=== PATIENT | male | born 1975 | race Caucasian/White ===

== ENCOUNTER 2024-06-06 09:26 | Inpatient (IN) ==
--- NOTE | 2024-06-01 12:20 | Anesthesiology Consultation ---
Date of Service June 01, 2024 Assessment & Plan (1) Encounter for pre-operative examination: Chart Review Chart Review: Acceptable Risk for Surgery and Patient NOT seen in Pre Admission Testing Cardiology note 05/25/24: "Patient denies any anginal complaints at this time. Last echo 04/03/24 reveals EF 60%, no RWMA, no significant valvular disease. Over the past 30 days he has not had any active cardiovascular conditions such as acute coronary syndrome, decompensated heart failure, severe symptomatic valvular heart disease or symptomatic cardiac arrhythmias. From a functional capacity standpoint, he is able to perform activities above 4 METS. Based on history, do not recommend further invasive or noninvasive cardiovascular testing or procedures prior to proceeding with planned surgery. Patient is well optimized from a cardiac standpoint to proceed with their scheduled procedure." Consults Requested none History Surgery Operation Date: 06/06/24 07:30 Proposed Procedures p Transcarotid Artery Revascularization - Domingo Pickett MD Height/Weight Height: 5 ft 5.5 in Weight: 68.039 kg Allergies Allergy/AdvReac Type Severity Reaction Status Date / Time Pumpkin Seeds Allergy Mild Uncoded 05/31/24 09:34 Medications Home Medications Medication Instructions Recorded Confirmed Last Taken aspirin 81 mg tablet,delayed 81 mg PO DAILY 03/30/24 05/31/24 Unknown release atorvastatin 80 mg tablet 80 mg PO QPM 03/30/24 05/31/24 Unknown baclofen 10 mg tablet 10 mg PO BID PRN muscle spasms 03/30/24 05/31/24 Unknown buspirone 10 mg tablet 10 mg PO BID 03/30/24 05/31/24 Unknown carvedilol 3.125 mg tablet 3.125 mg PO BID 03/30/24 05/31/24 Unknown desmopressin 0.1 mg tablet 0.1 mg PO QPM 03/30/24 05/31/24 Unknown lacosamide 100 mg tablet 100 mg PO BID 03/30/24 05/31/24 Unknown losartan 50 mg tablet 50 mg PO QAM 03/30/24 05/31/24 Unknown sertraline 100 mg tablet 100 mg PO QAM 03/30/24 05/31/24 Unknown trazodone 100 mg tablet 200 mg PO HS PRN Sleep 03/30/24 05/31/24 Unknown ticagrelor 90 mg tablet 90 mg PO BID 05/31/24 05/31/24 Unknown Past Medical History Medical History (Updated 06/01/24 @ 12:14 by Aniket Garrett MD) Encounter for pre-operative examination ADHD no meds 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 Hx of renal calculi passed on own 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" follows with nephrology at [facility] Hx of deep venous thrombosis (11/2023) left arm, caused from an IV History of GI bleed (11/2023) admit to [facility], had colonoscopy with polyps Carotid artery stenosis Anxiety Hyperlipidemia History of anesthesia reaction "extremely violent" when awakening History of seizure (2019) "Massive Seizure" life-flighted to [place] from [facility], no seizure since this time Hypertension seen in [facility] ED on 05/28/24 with "extreme high bp" - reports getting iv medication and monitoring then sent home Past Surgical History Surgical History Hx of colonoscopy with polypectomy History of wisdom tooth extraction Hx of foot surgery plantar warts removed Hx of cardiac catheterization (2019) [facility], no [place], went on to have CABG x 1 at [facility] Hx of CABG (2019) x 1, [facility], follows with [facility] (05/25/24) History of carpal tunnel surgery of right wrist Hx of inguinal hernia surgery as an infant, bilateral Social History Smoking Status: Former smoker Do You Dip or Chew Tobacco: No Smoking End Date: Oct 13, 2023 ( > 1ppd) Hx Alcohol Use: Yes Alcohol type: wine alcohol intake frequency: a few times a week Alcohol Intake Frequency Comment: Previous heavy drinker Hx Substance Use: Yes substance use type: marijuana Last Used Substance Other:: medical marijuana daily Testing Laboratory Results 05/07/24: WBC 7.57, hgb 14.4, hct 40.9, plt 232 Na 137, K 3.5, Cl 107, bicarb 25, BUN 9, creat 0.83 Electrocardiogram Date: 05/07/24 HR 56. Sinus swati. No sig change. Echocardiogram Date: 04/03/24 Other Testing LV size and function normal.
--- NOTE | 2024-06-06 07:46 | History & Physical Report ---
Date of Service June 06, 2024 Assessment & Plan (1) Stenosis of left internal carotid artery: Plan: Patient is asymptomatic from his left ICA disease, however, this is rather severe at around 90% stenosis. The degree of stenosis does put the patient noted an increased risk(22%) of suffering a cerebrovascular accident. Due to the severity of the stenosis, we recommend that patient consider undergoing surgical intervention via carotid endarterectomy versus transcarotid artery revascularization. Both procedures, including the risks benefits and alternatives were discussed at length with the patient. Patient elects to proceed with left TCAR. The specific risks of CVA, myocardial infarction, local nerve damage, bleeding, infection were discussed at length with the patient. Patient expresses understanding and agreement to proceed. His was also present today as well. This to be scheduled in the next 2 weeks the patient's convenience. Additionally patient will be started on Plavix as of today, and will need to start taking aspirin again for maintenance of his upcoming carotid stent. We will have him evaluated by his conservation educator regarding his cardiac risk stratification. They are advised to call with any other questions or concerns. Patient is agreeable with this plan. History of Present Illness Chief Complaint: Left carotid stenosis Primary Care Provider: NO PCP is a middle-age male who presents for left ICA stenosis noted on recent imaging. Patient states that he was having dizziness and flashes in his vision, as well as nausea and vomiting, and went to his local emergency department. His blood pressure was extremely elevated at the time. During that visit, he had a CTA of his neck and head, which demonstrated 80 to 90% of his left ICA. Patient denies any history of stroke in the past. He also denies any recent concerning symptoms, including amaurosis, unilateral extremity weakness numbness or tingling, difficulty speaking or swallowing, facial droop, sudden onset confusion. 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 He denies any complaints at this time including headache, fever, chest pain, shortness of breath, vomiting, nausea, vomiting, rest pain, claudication, nonhealing wounds or ulcers, other complaints. He states he was seen by a local vascular surgeon in his area, but was dissatisfied with his visit there and requested a second opinion here. Allergies Allergy/AdvReac Type Severity Reaction Status Date / Time pumpkin Allergy Unknown Verified 06/04/24 11:22 Home Medications Medication Instructions Recorded Confirmed Type aspirin 81 mg tablet,delayed 81 mg PO DAILY 03/30/24 05/31/24 History release atorvastatin 80 mg tablet 80 mg PO QPM 03/30/24 05/31/24 History baclofen 10 mg tablet 10 mg PO BID PRN muscle spasms 03/30/24 05/31/24 History buspirone 10 mg tablet 10 mg PO BID 03/30/24 05/31/24 History carvedilol 3.125 mg tablet 3.125 mg PO BID 03/30/24 05/31/24 History desmopressin 0.1 mg tablet 0.1 mg PO QPM 03/30/24 05/31/24 History lacosamide 100 mg tablet 100 mg PO BID 03/30/24 05/31/24 History losartan 50 mg tablet 50 mg PO QAM 03/30/24 05/31/24 History sertraline 100 mg tablet 100 mg PO QAM 03/30/24 05/31/24 History trazodone 100 mg tablet 200 mg PO HS PRN Sleep 03/30/24 05/31/24 History ticagrelor 90 mg tablet 90 mg PO BID 05/31/24 05/31/24 History Past Med/Surg History Problem List (Updated 06/06/24 @ 07:46 by Domingo Pickett MD) Stenosis of left internal carotid artery Medical History Encounter for pre-operative examination ADHD no meds 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 Hx of renal calculi passed on own 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" follows with nephrology at [facility] Hx of deep venous thrombosis (11/2023) left arm, caused from an IV History of GI bleed (11/2023) admit to [facility], had colonoscopy with polyps Carotid artery stenosis Anxiety Hyperlipidemia History of anesthesia reaction "extremely violent" when awakening History of seizure (2019) "Massive Seizure" life-flighted to [place] from [facility], no seizure since this time Hypertension seen in [facility] ED on 05/28/24 with "extreme high bp" - reports getting iv medication and monitoring then sent home Surgical History Hx of colonoscopy with polypectomy History of wisdom tooth extraction Hx of foot surgery plantar warts removed Hx of cardiac catheterization (2019) [place], [place], went on to have CABG x 1 at [facility] Hx of CABG (2019) x 1, [facility] [place], follows with [facility] (05/25/24) History of carpal tunnel surgery of right wrist Hx of inguinal hernia surgery as an , bilateral Social History Smoking Status: Former smoker Tobacco Type: Cigarettes Smoking End Date: Oct 13, 2023 ( > 1ppd); Second Hand Exposure: No; Do You Dip or Chew Tobacco: No; Tobacco Cessation Education Requested by Patient: No Hx Alcohol Use: Yes Alcohol type: wine Hx Substance Use: Yes Last Used Substance Other:: medical marijuana daily Preferred Language: Syriac Communication Ability: Effective Three Dimensional Map Modeler Required: No Beliefs That Will Affect Care: None Current Living Situation: Spouse Other Information That Helps Us Care for You: No Feels Safe at Home: Yes Safety Concerns: Feels Safe At This Time Assistive Devices: Glasses Review of Systems All systems reviewed & are unremarkable except as noted in HPI & below Physical Exam Physical Exam: Constitutional: In general patient is a healthy-appearing well-nourished well- developed middle-aged male no distress. He is alert and oriented with any focal deficits. His carotids do not demonstrate a bruit. Heart is regular, his lungs are decreased but clear. His abdomen is soft and nontender with normoactive bowel sounds all 4 quadrants. Radial pulses +1 in the right, +2 on the left. Ulnar pulses +2 bilaterally. Femoral pulses are +2. Lower extremity distal pulses are +2. He has brisk capillary refill and no sign of distal ischemia.
[2024-06-06] MEDS: LR 15ML/HR IV SCH (10:31)
[2024-06-06 10:39] LABS: INR 1.1 (0.9-1.1); Partial Thromboplastin Time 26 Seconds (21-31); Prothrombin Time 11.9 Seconds (9.0-12.0)
[2024-06-06 11:00] LABS: BUN Creatinine Ratio 18.1 (10-20); Calcium 8.6 mg/dl (8.6-10.3); Creatinine Clr Calc Pharmacy 113.2 ml/min; Est GFR (African American) 127.8 ml/min; Est GFR (Non-African American) 110.3 ml/min; Potassium 3.8 mmol/L (3.5-5.1)
[2024-06-06] MEDS ORDERED: HYDROmorphone INJ 1 MG/ML SYRINGE IV PRN (11:11)
[2024-06-06] MEDS ORDERED: ATROPINE SULFATE 0.1 MG/ML 10ML SYR IV PRN (11:11)
[2024-06-06] MEDS ORDERED: ONDANSETRON INJ 2 MG/ML 2 ML VIAL IV PRN (11:11)
[2024-06-06] MEDS ORDERED: ePHEDrine sulfate 50 MG/ML AMP IV PRN (11:11)
[2024-06-06] MEDS ORDERED: fentaNYL citrate PF 100 MCG/2 ML VIAL IV PRN (11:11)
[2024-06-06] MEDS ORDERED: LABETALOL HCL IV 5 MG/ML 20ML IV PRN (11:11)
[2024-06-06 11:26] LABS: Troponin I High Sensitivity 3.5 pg/ml (0-20)
[2024-06-06] MEDS ORDERED: fentaNYL citrate PF 100 MCG/2 ML VIAL ONE (11:28)
[2024-06-06] MEDS ORDERED: LIDOCAINE 2% 2 ML VIAL/AMP(20MG/ML) INFIL ONE (11:28)
[2024-06-06] MEDS ORDERED: DEXAMETHASONE SOD INJ 4 MG/ML VIAL ONE (11:28)
[2024-06-06] MEDS ORDERED: PROPOFOL IV EMULSION 10 MG/ML 20 ML VIAL IV ONE ×2 (11:28→13:22)
[2024-06-06] MEDS ORDERED: MIDAZOLAM HCL 1 MG/ML 2ML VIAL ONE (11:28)
[2024-06-06] MEDS ORDERED: ONDANSETRON INJ 2 MG/ML 2 ML VIAL ONE (11:28)
[2024-06-06] MEDS ORDERED: ROCURONIUM BROMIDE 10 MG/ML 5 ML VIAL IV ONE ×10 (11:31→13:24)
--- NOTE | 2024-06-06 12:02 | History & Physical Bridge Note ---
Date of Service June 06, 2024 History & Physical Bridge Note I have examined the patient, reviewed the History & Physical and in the interval since the performance of the History & Physical I have noted the following changes of clinical significance: no changes noted
[2024-06-06] MEDS: ceFAZolin 2000MG 2,000 MG/15 ML SYR IV SCH ×2 (12:26→20:40)
[2024-06-06] MEDS: HEPARIN 100 UNIT/ML 5ML FLUSH ONE (13:18)
[2024-06-06] MEDS: GELATIN SPONGE SZ 100 ONE (13:19)
[2024-06-06] MEDS: THROMBIN FOR SOLN 20000 UNIT KIT ONE (13:19)
[2024-06-06] MEDS ORDERED: PROTAMINE SULFATE 10 MG/ML 5 ML VIAL IV ONE (13:25)
[2024-06-06] MEDS ORDERED: ePHEDrine sulfate 50 MG/5 ML SYR ONE (13:28)
[2024-06-06] MEDS ORDERED: PHENYLEPHRINE 100MCG/ML 10ML SYR IV ONE (13:28)
[2024-06-06] MEDS ORDERED: METOPROLOL TARTRATE 1 MG/ML VIAL IV ONE ×2 (13:34)
[2024-06-06] MEDS: VISIPAQUE IV ONE (13:34)
[2024-06-06] MEDS ORDERED: SUGAMMADEX SODIUM 200 MG/2 ML VIAL IV ONE (13:40)
[2024-06-06] MEDS: BUPIVACAINE/EPINEPHRINE 0.5% MPF 1:200,000 30 ML VIAL ONE (13:53)
[2024-06-06] MEDS: ceFAZolin 330 MG/ML 1 GM VIAL ONE (13:58)
--- NOTE | 2024-06-06 14:02 | Procedure Note ---
Angiogram Post Procedure Fluoroscopy Time (minutes): 2.8 Radiation (mGy): 37 Contrast: 18 Post Operative Report Pre & Post Diagnosis Operation Date: 06/06/24 12:30 Pre-Op Diagnosis: Left Carotid Artery Stenosis Post-Op Diagnosis: Left Carotid Artery Stenosis I identified the patient and participated in the time-out.: Yes Procedure Operation Date: 06/06/24 12:30 Actual Procedures p Left Transcarotid Artery Revascularization(Left), Ultrasound right common f emoral vein - Domingo Pickett MD Surgeon Domingo Pickett MD Health Safety Specialist Khang,PAC Estimated Blood Loss 20 Findings Consistent with Post-Op Diagnosis Specimens none Anesthesia Type General Complications none Disposition Accompanied Patient To Recovery: No Disposition: Recovery Room Indications This is a 49-year-old gentleman with a history of cardiac disease. He was found to have an asymptomatic severe stenosis of his left internal carotid artery. Endarterectomy versus TCAR were discussed with the patient. He like to go ahead with the TCAR procedure. I have discussed the risks options and benefits of the procedure with the patient. The patient understands the risks options and benefits and agrees to the procedure. Description of Procedure The patient was taken to the operating room and placed in supine position. After general anesthesia was accomplished the groins and left side of the neck and chest were prepped and draped in a sterile manner. Timeout was performed and the patient was identified. A transverse incision was made just above the clavicle between the heads of the sternocleidomastoid. This was carried down to where the common carotid artery was identified. It was isolated and slung with an umbilical tape. It was given 8000units of heparin at that time. Ultrasound was then used to localize the right common femoral vein. The vein was patent and compressed easily. Under ultrasound guidance the right common femoral vein was punctured and the venous sheath was inserted. This was aspirated and flushed with heparinized saline. An ACT at that time was 305. Using micropuncture technique the common carotid artery was punctured. The micro sheath was inserted to 3 cm. Injection was then done showing the bifurcation. There was a significant lesion seen just beyond the origin of the internal carotid artery on the left side. We reinserted the micro wire and passed it into the external carotid. We then advanced the dilator and sheath into the external carotid. The dilater and sheath were removed. We then inserted the J- wire into the external carotid artery. The TCAR sheath was inserted. Once it was in place and held against the artery it was sutured to the chest wall and the incision edge. We then flushed the tubing appropriately. The venous return tubing was clamped onto the TCAR sheath. It was flushed through and then attached to the venous inflow sheath in the right groin. The sheath was checked for flow. The common carotid artery was then clamped. Flow through the venous return sheath was again checked and found to be adequate. We then inserted a 6 x 25 balloon backloaded on the wire. The wire was passed through the lesion into the petrous portion of the internal carotid. The 6 balloon was then advanc ed to the lesion. The lesion was then predilated with the 6 mm balloon. The balloon was removed. We then inserted the 10/8 x 40 stent. This was deployed across the lesion without difficulty. The catheter was removed. The carotid was allowed to go 2 minutes with flow reversal. Completion angiogram was done at that time which showed no residual stenosis however the stent was barely into the common carotid artery. It was felt that we needed to extend it down further onto the common. We then inserted a 10 x 30 straight stent and deployed it overlapping the previously placed stent distally and having the proximal and land just into the common carotid artery. We then allowed 2 minutes for flow reversal to occur. We did another angiogram which showed no residual stenosis and a nicely seated stent.The wire was removed and the common carotid artery was unclamped. The venous return tubing was clamped and removed from the TCAR sheath. The blood was allowed to flow back into the venous system. The TCAR sheath was then removed and the 5-0 Prolene suture securely tied. Hemostasis was noted of the puncture site. The patient was given 25 mg of protamine. Another ACT was performed which was 126. The sheath was pulled from the groin and pressure was applied. Wound was irrigated with Ancef solution. Adequate hemostasis was obtained of the wound. Once this was noted the wound was closed in usual fashion using a 3-0 Vicryl suture for the subcutaneous layer and a 4-0 subcuticular Vicryl suture for the skin edges. Dermabond was used for dressing.The patient left the operation room in satisfactory condition and tolerated the procedure well. All needle and sponge counts were correct at the end of the procedure. Cherry Khan Pac assisted due to lack of resident availability and was necessary for positioning, draping, retraction, wound closure deep layers, subcutaneous tissue, and skin closure and was necessary for assisting with the case. I attest to the content of the Intraoperative Record and any orders documented therein. Any exceptions are noted below.
[2024-06-06] MEDS ORDERED: hydrALAZINE HCL 20 MG/ML VIAL ONE (14:11)
[2024-06-06] MEDS ORDERED: STAT IV Infusion **Titration per Protocol STA (15:41)
[2024-06-06] MEDS ORDERED: traZODone HCL 100 MG TAB PO PRN (15:41)
[2024-06-06] MEDS ORDERED: PHENYLEPHRINE/NSS 25 MG/250 ML BAG IV PRN (15:41)
[2024-06-06] MEDS ORDERED: BACLOFEN 10 MG TAB PO PRN (15:41)
--- NOTE | 2024-06-06 15:53 | Anesthesiology Progress Note ---
Date of Service June 06, 2024 Anesthesia Post Procedure Vital Signs Vital Signs: Temp Pulse Resp BP BP BP Pulse Ox 06/06/24 15:05 36.3 C L 85 22 133/69 130/81 96 06/06/24 14:55 87 20 136/74 127/84 94 06/06/24 14:45 91 H 23 139/74 132/84 95 06/06/24 14:35 90 23 138/71 132/86 96 06/06/24 14:25 95 H 24 136/71 138/84 98 06/06/24 14:19 36.0 C L 93 H 20 144/72 H 149/97 H 100 06/06/24 10:14 36.6 C 74 20 110/74 115/79 93 O2 Del Method O2 Flow Rate 06/06/24 15:05 Room Air 06/06/24 14:55 Room Air 06/06/24 14:45 Room Air 06/06/24 14:35 Room Air 06/06/24 14:25 Room Air 06/06/24 14:19 Oxymask 10 06/06/24 10:14 Room Air Pain Intensity Right Shoulder: Pain Intensity: 6 Transfer of Care Handoff Completed per policy Notes Mental Status: alert / awake / arousable Patient Amnestic to Procedure: Yes Nausea / Vomiting: adequately controlled Pain: adequately controlled Airway Patency, RR, SpO2: stable & adequate BP & HR: stable & adequate Hydration State: stable & adequate Anesthetic Complications: no major complications apparent and Pt Satisfied with anesthetic care
[2024-06-06] MEDS: LACTATED RINGER'S 1,000 ML IV SCH (16:00)
--- NOTE | 2024-06-06 16:32 | Critical Care Consultation ---
Date of Consultation June 06, 2024 Assessment & Plan (1) Stenosis of left internal carotid artery: Postop day 0 status post left TCAR. Hemodynamics remained stable. Blood pressure parameters and antiplatelet medications per vascular surgeon team. (2) Hx of CABG: Follows with [facility] cardiology. Currently on ASCVD goal directed therapy. History of Present Illness Reason for Consultation: Postop day 0 status post left TCAR Attending Physician: Domingo Pickett MD History of Present Illness 49-year-old male with a history of asymptomatic left ICA disease found to have severe stenosis of around 90%. Patient also with a history of extensive coronary artery disease status post CABG in 2020 and follows with an outside bisque grader. No major complaints the patient remained stable hemodynamically with arterial line in place. Antihypertensive medications and antiplatelet therapy ordered by the vascular surgeon. Allergies Allergy/AdvReac Type Severity Reaction Status Date / Time pumpkin Allergy Unknown Verified 06/06/24 10:12 Home Medications Medication Instructions Recorded Confirmed Type aspirin 81 mg tablet,delayed 81 mg PO DAILY 03/30/24 06/06/24 History release atorvastatin 80 mg tablet 80 mg PO QPM 03/30/24 06/06/24 History baclofen 10 mg tablet 10 mg PO BID PRN muscle spasms 03/30/24 06/06/24 History buspirone 10 mg tablet 10 mg PO BID 03/30/24 06/06/24 History carvedilol 3.125 mg tablet 3.125 mg PO BID 03/30/24 06/06/24 History desmopressin 0.1 mg tablet 0.1 mg PO QPM 03/30/24 06/06/24 History lacosamide 100 mg tablet 100 mg PO BID 03/30/24 06/06/24 History losartan 50 mg tablet 50 mg PO QAM 03/30/24 06/06/24 History sertraline 100 mg tablet 100 mg PO QAM 03/30/24 06/06/24 History trazodone 100 mg tablet 200 mg PO HS PRN Sleep 03/30/24 06/06/24 History ticagrelor 90 mg tablet 90 mg PO BID 05/31/24 06/06/24 History Patient History Medical History Encounter for pre-operative examination ADHD no meds 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 Hx of renal calculi passed on own 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" follows with nephrology at [facility] Hx of deep venous thrombosis (11/2023) left arm, caused from an IV History of GI bleed (11/2023) admit to [facility], had colonoscopy with polyps Carotid artery stenosis Anxiety Hyperlipidemia History of anesthesia reaction "extremely violent" when awakening History of seizure (2019) "Massive Seizure" life-flighted to [facility] from [facility], no seizure since this time Hypertension seen in [facility] ED on 05/28/24 with "extreme high bp" - reports getting iv medication and monitoring then sent home Surgical History Hx of colonoscopy with polypectomy History of wisdom tooth extraction Hx of foot surgery plantar warts removed Hx of cardiac catheterization (2019) [facility], no [place], went on to have CABG x 1 at [facility] Hx of CABG (2019) x 1, [facility], follows with [facility] (05/25/24) History of carpal tunnel surgery of right wrist Hx of inguinal hernia surgery as an , bilateral Social History Smoking Status: Former smoker Tobacco Type: Cigarettes Smoking End Date: Oct 13, 2023 ( > 1ppd); Second Hand Exposure: No; Do You Dip or Chew Tobacco: No; Tobacco Cessation Education Requested by Patient: No Hx Alcohol Use: Yes Alcohol type: wine Hx Substance Use: Yes Last Used Substance Other:: medical marijuana daily Preferred Language: Greenlandic Communication Ability: Effective Centrex Radio Operator Required: No Beliefs That Will Affect Care: None Current Living Situation: Spouse Other Information That Helps Us Care for You: No Feels Safe at Home: Yes Safety Concerns: Feels Safe At This Time Assistive Devices: Glasses Review of Systems Review of Systems: All systems reviewed & are unremarkable except as noted in HPI & below Physical Exam Physical Exam: Constitutional: Patient appears to be of their stated age. Patient is in no apparent distress. Patient is well-developed. Eyes: Pupils are equal round and reactive to light. Conjunctivae are normal. Anicteric sclera. Ears nose, mouth and throat: Mallampati class 1. Normal posterior oropharynx. Uvula is midline. Neck: Trachea is midline. Visual inspection is normal. TCAR incision site appears clean dry and intact. Mild bruising. Respiratory: Clear to auscultation bilaterally. No use of accessory muscles. No significant clubbing noted. Cardiovascular: Regular rate and rhythm. No murmurs. No edema. Gastrointestinal: Normal bowel sounds, soft, nontender and nondistended. No hepatosplenomegaly noted. Musculoskeletal: No cyanosis. Patient is able to move all extremities. Strength is 5 out of 5 in the upper and lower extremities. Skin: No rashes, warm dry and intact. Neurologic: No obvious focal neurological deficits seen. Psychiatric: Alert and oriented x3 with a euthymic affect. Results & Data Results & Data Vital Signs (Past 12 Hours) Vital Signs Temp Pulse Resp BP BP BP Pulse Ox 06/06/24 15:05 36.3 C L 85 22 133/69 130/81 96 06/06/24 14:55 87 20 136/74 127/84 94 06/06/24 14:45 91 H 23 139/74 132/84 95 06/06/24 14:35 90 23 138/71 132/86 96 06/06/24 14:25 95 H 24 136/71 138/84 98 06/06/24 14:19 36.0 C L 93 H 20 144/72 H 149/97 H 100 06/06/24 10:14 36.6 C 74 20 110/74 115/79 93 O2 Del Method O2 Flow Rate 06/06/24 15:05 Room Air 06/06/24 14:55 Room Air 06/06/24 14:45 Room Air 06/06/24 14:35 Room Air 06/06/24 14:25 Room Air 06/06/24 14:19 Oxymask 10 06/06/24 10:14 Room Air Coding Level of Care Code 54012 IN/OBS CONSULT LVL 3,45M Diagnoses Stenosis of left internal carotid artery I65.22 Hx of CABG Z95.1
[2024-06-06] MEDS: ASPIRIN 81 MG ECTAB PO SCH (16:52)
[2024-06-06] MEDS: oxyCODONE/ACETAMINOPHEN 5mg/325mg TAB PO PRN (16:52)
[2024-06-06 17:27] VITALS: TEMP 97.6
--- OUTSIDE RECORDS SUMMARY | 2024-06-06 18:18 | External Medical Summary | Continuity of Care Document ---
Author Name Unknown Organization [facility] [address] [facility] Address [address] [place], [place] [id number] Care Team Providers Care Painter Mirror Name Role Phone Lolis Penn Primary Care Physician [phone] Encounter [id number] Date(s): 04/18/24 - 04/18/24 [facility] [address] [place] [address] [phone] Encounter Diagnosis Left carotid artery stenosis(Discharge Diagnosis) - 04/18/24 Discharge Disposition: Home or Self Care Attending Physician: MD Pickett Eugene J Referring Physician: JO ANN Penn Lauren Y Allergies, Adverse Reactions, Alerts Substance Criticality Severity Reaction Reaction Severity Status Allergy Not found in Search 1 itchy throat Active 1pumpkin seeds Assessment and Plan Extracted from: Title:Clinical Document Author:JO ANN Khan Lynn Date:04/18/24 I OUTPATIENT NOTE Name: ENA GAGE Patient Number: [id number] : 1975 Date of Service: 04/18/2024 Chief Complaint: New patient consultation for carotid stenosis_ HPI: _ is a middle-age male who presents to Dr. Pickett vascular surgery clinic today as a new patient in consultation for left ICA stenosis noted on recent imaging. Patient states that he was having dizziness and flashes in his vision, as well as nausea and vomiting, and went to his local emergency department. His blood pressure was extremely elevated at the time. During that visit, he had a CTA of his neck and head, which demonstrated 80 to 90% of his left ICA. Patient denies any history of stroke in the past. He also denies any recent concerning symptoms, including amaurosis, unilateral extremity weakness numbness or tingling, difficulty speaking or swallowing, facial droop, sudden onset confusion. 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 He denies any complaints at this time including headache, fever, chest pain, shortness of breath, vomiting, nausea, vomiting, rest pain, claudication, nonhealing wounds or ulcers, other complaints. He states he was seen by a local vascular surgeon in his area, but was dissatisfied with his visit there and requested a second opinion here. Review of systems: Total of 14 systems were reviewed and are negative aside from what is related in his HPI Imaging: Patient had a CTA of his neck performed at [facility] which demonstrates 90% stenosis of his left ICA. Current Home Meds: (Last Updated 04/18 09:24) aspirin (aspirin 81 mg oral delayed release tablet) take 1 tablet by mouth once daily atorvastatin (atorvastatin 80 mg oral tablet) 80 mg PO Daily busPIRone (busPIRone 10 mg oral tablet) take 1 tablet by mouth twice a day carvedilol (carvedilol 3.125 mg oral tablet) take 1 tablet by mouth twice a day clopidogrel (Plavix 75 mg oral tablet) 75 mg PO Daily desmopressin (desmopressin 0.1 mg oral tablet) 0.1 mg PO Daily levETIRAcetam (levETIRAcetam 500 mg oral tablet, extended release) TAKE 1 TABLET BY MOUTH ONCE DAILY AT BEDTIME losartan (losartan 50 mg oral tablet) take 1 tablet by mouth once daily meclizine (meclizine 25 mg oral tablet) 25 mg PO tid PRN: as needed for dizziness omeprazole (omeprazole 40 mg oral delayed release capsule) take 1 capsule by mouth once daily rivaroxaban (Xarelto 20 mg oral tablet) take 1 tablet by mouth once daily sertraline (sertraline 100 mg oral tablet) take 1 tablet by mouth once daily traZODone (traZODone 100 mg oral tablet) 100 mg PO qhs Allergies and Sensitivities: Allergy Not found in Search(itchy throat) Past Medical History: Problems: Left carotid artery stenosis Hypertension Seizures Left arm DVT and superficial thrombophlebitis Coronary artery disease, status post CABG Hypercholesterolemia Gastroesophageal reflux disease GI bleeding from colon polyp ADHD Depression Anxiety Chronic kidney disease Surgical history: Carpal tunnel surgery right, hernia repair, tympanostomy tubes, coronary artery bypass grafting 2020 Family history: Positive for heart disease, hypertension, diabetes, cancer, stroke, kidney disease Social history: Patient smoked 1 pack a day for 20 years and quit October 13, 2023. Patient has 1-2 alcoholic beverages per day. He denies current illicit drug use, although has smoked marijuana in the past. He currently works in a factory. He is and lives with his . OBJECTIVE Vitals: Last Updated 04/18/24 08:15 Date Temp BP Location Pulse RR SpO2 Pain 04/18/24 116/76 Left Arm 74 98 0 Vital Signs are the last 3 documented. No Orthostatic Data Available Height and Weight: Last Updated 04/18/24 08:15 Date BMI Wt(kg) Wt(lb) Method Ht(cm) (ft-in) Method 04/18/24 64.1 141 Standing Scale Heights and Weights are the last 3 documented. Physical Exam Constitutional: In general patient is a healthy-appearing well-nourished well-developed middle-aged male no distress. He is alert and oriented with any focal deficits. His carotids do not demonstrate a bruit. Heart is regular, his lungs are decreased but clear. His abdomen is soft and nontender with normoactive bowel sounds all 4 quadrants. Radial pulses +1 in the right, +2 on the left. Ulnar pulses +2 bilaterally. Femoral pulses are +2. Lower extremity distal pulses are +2. He has brisk capillary refill and no sign of distal ischemia. ASSESSMENT: _ PLAN: _ 1 ) _left ICA stenosis Patient is asymptomatic from his left ICA disease, however, this is rather severe at around 90% stenosis. The degree of stenosis does put the patient noted an increased risk(22%) of suffering a cerebrovascular accident. Due to the severity of the stenosis, we recommend that patient consider undergoing surgical intervention via carotid endarterectomy versus transcarotid artery revascularization. Both procedures, including the risks benefits and alternatives were discussed at length with the patient. Patient elects to proceed with left TCAR. The specific risks of CVA, myocardial infarction, local nerve damage, bleeding, infection were discussed at length with the patient. Patient expresses understanding and agreement to proceed. His was also present today as well. This to be scheduled in the next 2 weeks the patient's convenience. Additionally patient will be started on Plavix as of today, and will need to start taking aspirin again for maintenance of his upcoming carotid stent. We will have him evaluated by his wild life photographer regarding his cardiac risk stratification. They are advised to call with any other questions or concerns. Patient is agreeable with this plan. Thank you for letting us participate in the care of this patient. I have personally spent_54__ minutes performing [id number] and urj-[id number]-face activities on this date of service.Time does not include separately reported services. Activities Include: _x_ review of the medical record x__ obtaining a history _x_ physical exam/evaluation _x_ review labs _x_ review radiology reports _x_ counseling/educating patient/family/caregiver _x_ discussion/referral to other healthcare professional _x_ documenting care in the medical record __ independent interpretation of results _x_ communication of results to patient/family/caregiver x_ coordination of care Addendum by JO ANN Khan Lynn on April 18, 2024 10:57 EDT Patient should continue his normal activities up until surgery. Patient was also advised to discuss his Xarelto medication for his left arm DVT from October 2023 with his primary care physician. If it is no longer necessary for a 6-month old DVT, then it should be discontinued. Medications aspirin 81 mg oral delayed release tablet take 1 tablet by mouth once daily Start Date: 04/18/24 Status: Ordered atorvastatin 80 mg oral tablet Start: 04/18/24 8:08:00 AM EDT, 1 tab, PO, Daily Start Date: 04/18/24 Status: Ordered busPIRone 10 mg oral tablet take 1 tablet by mouth twice a day Start Date: 04/18/24 Status: Ordered carvedilol 3.125 mg oral tablet take 1 tablet by mouth twice a day Start Date: 04/18/24 Status: Ordered desmopressin 0.1 mg oral tablet Start: 04/18/24 8:08:00 AM EDT, 1 tab, PO, Daily Start Date: 04/18/24 Status: Ordered levETIRAcetam 500 mg oral tablet, extended release TAKE 1 TABLET BY MOUTH ONCE DAILY AT BEDTIME Start Date: 04/18/24 Status: Ordered losartan 50 mg oral tablet take 1 tablet by mouth once daily Start Date: 04/18/24 Status: Ordered meclizine 25 mg oral tablet Start: 04/18/24 8:08:00 AM EDT, 1 tab, PO, tid, PRN: as needed for dizziness Start Date: 04/18/24 Status: Ordered omeprazole 40 mg oral delayed release capsule take 1 capsule by mouth once daily Start Date: 04/18/24 Status: Ordered Plavix 75 mg oral tablet Start: 04/18/24 9:23:00 AM EDT, 1 tab, PO, Daily, Disp# 30 tab, Refills: 11, Pharmacy: [id number] Start Date: 04/18/24 Status: Ordered sertraline 100 mg oral tablet take 1 tablet by mouth once daily Start Date: 04/18/24 Status: Ordered traZODone 100 mg oral tablet Start: 04/18/24 8:09:00 AM EDT, 1 tab, PO, qhs Start Date: 04/18/24 Status: Ordered Xarelto 20 mg oral tablet take 1 tablet by mouth once daily Start Date: 04/18/24 Status: Ordered Mental Status 04/18/24 Barriers to Learning one year None evide nt Mandatory Health Literacy Documentation Yes Health Literacy Communication Barriers N ever Primary Language Georgian Problem List Condition Confirmation Course Effective Dates Status Health St atus Informant Left carotid artery stenosis Confirmed Active Diagnosis Diagnosis Type Effective Dates Health Status Cl inical Service Informant Left carotid artery stenosis Discharge Diagnosis 04/18/24 Vital Signs Most recent to oldest [Reference Range]: 1 Patient Weight 64.1 kg (04/18/24 8:15 AM) Heart Rate 74 bpm (04/18/24 8:15 AM) Blood Pressure 116/76mmHg (04/18/24 8:15 AM) Cuff Pulse Pressure 40 mmHg (04/18/24 8:15 AM) BP Location # 1 Left Arm (04/18/24 8:15 AM) Social History Social History Type Response Smoking Status Former Smoker, quit within 31 days - 1 yr Sex Male [facility] Outpt Note * JO ANN Khan Lynn: PERFORM Event Display: [facility] Outpt Note Authored Date: [id number] [facility] OUTPATIENT NOTE Name: ENA GAGE Patient Number: [id number] : 1975 Date of Service: 04/18/2024 Chief Complaint: New patient consultation for carotid stenosis_ HPI: _ is a middle-age male who presents to Dr. Pickett vascular surgery clinic today as a new patient in consultation for left ICA stenosis noted on recent imaging. Patient states that he was having dizziness and flashes in his vision, as well as nausea and vomiting, and went to his local emergency department. His blood pressure was extremely elevated at the time. During that visit, hehad a CTA of his neck and head, which demonstrated 80 to 90% of his left ICA. Patient denies any history of stroke in the past. He also denies any recent concerning symptoms, including amaurosis, unilateral extremity weakness numbness or tingling, difficulty speaking or swallowing, facial droop, sudden onset confusion. 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 He denies any complaints at this time includingheadache, fever, chest pain, shortness of breath, vomiting, nausea, vomiting, rest pain, claudication, nonhealing wounds or ulcers, other complaints. He states he was seen by a local vascular surgeon in his area, but was dissatisfied with his visit there and requested a second opinion here. Review of systems: Total of 14 systems were reviewed and are negative aside from what is related inhis HPI Imaging: Patient had a CTA of his neck performed at [facility] which demonstrates 90% stenosis of his left ICA. Current Home Meds: (Last Updated 04/18 09:24) aspirin (aspirin 81 mg oral delayed release tablet) take 1 tablet by mouth once daily atorvastatin (atorvastatin 80 mg oral tablet) 80 mg PO Daily busPIRone (busPIRone 10 mg oral tablet) take 1 tablet by mouth twice a day carvedilol (carvedilol 3.125 mg oral tablet) take 1 tablet by mouth twice a day clopidogrel (Plavix 75 mg oral tablet) 75 mg PO Daily desmopressin (desmopressin 0.1 mg oral tablet) 0.1 mg PO Daily levETIRAcetam (levETIRAcetam 500 mg oral tablet, extended release) TAKE 1 TABLET BY MOUTH ONCE DAILY AT BEDTIME losartan (losartan 50 mg oral tablet) take 1 tablet by mouth once daily meclizine (meclizine 25 mg oral tablet) 25 mg PO tid PRN: as needed for dizziness omeprazole (omeprazole 40 mg oral delayed release capsule) take 1 capsule by mouth once daily rivaroxaban (Xarelto 20 mg oral tablet) take 1 tablet by mouth once daily sertraline (sertraline 100 mg oral tablet) take 1 tablet by mouth once daily traZODone (traZODone 100 mg oral tablet) 100 mg PO qhs Allergies and Sensitivities: Allergy Not found in Search(itchy throat) Past Medical History: Problems: Left carotid artery stenosis Hypertension Seizures Left arm DVT and superficial thrombophlebitis Coronary artery disease, status post CABG Hypercholesterolemia Gastroesophageal reflux disease GI bleeding from colon polyp ADHD Depression Anxiety Chronic kidney disease Surgical history: Carpal tunnel surgery right, hernia repair, tympanostomy tubes, coronary artery bypass grafting 2020 Family history: Positive for heart disease, hypertension, diabetes, cancer, stroke, kidney disease Social history: Patient smoked 1 pack a day for 20 years and quit October 13, 2023. Patient has 1-2 alcoholic beverages per day. He denies current illicit drug use, although has smoked marijuana in the past. He currently works in a factory. He is and lives with his . OBJECTIVE Vitals: Last Updated 04/18/24 08:15 Date Temp BP Location Pulse RR SpO2 Pain 04/18/24 116/76 Left Arm 74 98 0 Vital Signs are the last 3 documented. No Orthostatic Data Available Height and Weight: Last Updated 04/18/24 08:15 Date BMI Wt(kg) Wt(lb) Method Ht(cm) (ft-in) Method 04/18/24 64.1 141 Standing Scale Heights and Weights are the last 3 documented. Physical Exam Constitutional: In general patient is a healthy-appearing well-nourished well- developed middle-agedmale no distress. He is alert and oriented with any focal deficits. His carotids do not demonstratea bruit. Heart is regular, his lungs are decreased but clear. His abdomen is soft and nontender with normoactive bowel sounds all 4 quadrants. Radial pulses +1 in the right, +2 on the left. Ulnar pulses +2 bilaterally. Femoral pulses are +2. Lower extremity distal pulses are +2. He has brisk capillary refill and no sign of distal ischemia. ASSESSMENT: _ PLAN: _ 1 ) _left ICA stenosis Patient is asymptomatic from his left ICA disease, however, this is rather severe at around 90% stenosis. The degree of stenosis does put the patient noted an increased risk(22%) of suffering a cerebrovascular accident. Due to the severity of the stenosis, we recommend that patient consider undergoing surgical intervention via carotid endarterectomy versus transcarotid artery revascularization. Both procedures, including the risks benefits and alternatives were discussed at length with the patient. Patient elects to proceed with left TCAR. The specific risks of CVA, myocardial infarction, local nerve damage, bleeding, infection were discussed at length with the patient. Patient expresses understanding and agreement to proceed. His was also present today as well. This to be scheduled in the next 2 weeks the patient's convenience. Additionally patient will be started on Plavix as of today, and will need to start taking aspirin again for maintenance of his upcoming carotid stent. Wewill have him evaluated by his wild life photographer regarding his cardiac risk stratification. They are advised to call with any other questions or concerns. Patient is agreeable with this plan. Thank you for letting us participate in the care of this patient. I have personally spent_54__ minutes performing [id number] and cfe-glgg-[id number]-face activities on this date of service.Time does not include separately reported services. Activities Include: _x_ review of the medical record x__ obtaining a history _x_ physical exam/evaluation _x_ review labs _x_ review radiology reports _x_ counseling/educating patient/family/caregiver _x_ discussion/referral to other healthcare professional _x_ documenting care in the medical record __ independent interpretation of results _x_ communication of results to patient/family/caregiver x_ coordination of care Electronic Signature on File Electronically Reviewed/Signed by: Cherry Khan PA-C Author Signature Dt/Tm:04/18/2024 10:56 AM [facility] [place], [address] [place] [address] LM * JO ANN Khan Lynn: PERFORM Event Display: HVI Outpt Note Authored Date: [id number] Patient should continue his normal activities up until surgery. Patient was also advised to discusshis Xarelto medication for his left arm DVT from October 2023 with his primary care physician. If it is no longer necessary for a 6-month old DVT, then it should be discontinued. Electronic Signature on File CC: Lolis Penn PA-C [address] [place] [id number] * Electronically Reviewed/Signed by: Cherry Khan PA-C Author Signature Dt/Tm:04/18/2024 10:57 AM [facility] [place] [address], [facility] [address] [place] [address] Patient Care team information Care Team Personnel Name: JO ANN Khan Lynn Position: Physician Vice President Biostatistics Exempt - Vasc Surg Member Role: Lifetime Relationship Address: Address: [facility] [address] [place] [address] Name: JO ANN Penn Lauren Y Position: Referring Member Role: Primary Care Provider Address: Address: [address] [place] [id number]
[2024-06-06] MEDS: CALCIUM CARBONATE 500 MG CHEWABLE TAB PO PRN (20:34)
[2024-06-06] MEDS: TICAGRELOR 90 MG TAB PO SCH (20:36)
[2024-06-06] MEDS: ONDANSETRON INJ 2 MG/ML 2 ML VIAL IV PRN (20:36)
[2024-06-06] MEDS: LACOSAMIDE 50 MG TABLET PO SCH (20:37)
[2024-06-06] MEDS: DESMOPRESSIN ACETATE 0.1 MG TAB PO SCH (20:38)
[2024-06-06] MEDS: ATORVASTATIN 40 MG TAB PO SCH (20:39)
[2024-06-06] MEDS: busPIRone 5 MG TAB PO SCH (20:39)
[2024-06-06] MEDS: carvediloL 3.125 MG TAB PO SCH (20:39)
[2024-06-06] MEDS: FAMOTIDINE 20 MG TAB PO SCH (23:06)
[2024-06-07] MEDS: SODIUM CHLORIDE 0.9% 1,000 ML IV SCH (04:08)
[2024-06-07] MEDS: LOSARTAN POTASSIUM 50 MG TAB PO SCH (08:04)
[2024-06-07] MEDS: SERTRALINE HCL 100 MG TABLET PO SCH (08:04)
[2024-06-07 09:31] VITALS: RESP 15; O2SAT 92
--- NOTE | 2024-06-07 12:46 | Surgery Progress Note ---
Date of Service June 07, 2024 Assessment & Plan (1) Stenosis of left internal carotid artery: Plan: Patient POD#1 from a left tcar. Doing well with no neuro deficits. D\C today. Admission and Anticipated Discharge Date Admission Date: June 06, 2024 Subjective Patient complaining of incisional pain. Denies any focal deficits. Physical Exam Constitutional: WD/WN, vitals as above Neck: trachea midline Respiratory: normal respiratory effort; no respiratory distress Cardiovascular: Rate/Rhythm: regular rate and regular rhythm Skin: + incision (small amount of edema and ec chymosis) Neurologic: CN's II-XI intact bilaterally and moves all extremities Psychiatric: A+Ox3, euthymic affect Results & Data Vital Signs (Past 12 Hours) Vital Signs Pulse Resp BP Pulse Ox O2 Del Method 06/07/24 09:03 91 H 15 92 06/07/24 09:00 136/86 06/07/24 09:00 136/86 06/07/24 08:54 88 16 93 06/07/24 08:00 80 16 93 06/07/24 08:00 137/95 06/07/24 08:00 137/95 06/07/24 08:00 137/95 06/07/24 08:00 137/95 06/07/24 07:09 88 13 94 Room Air 06/07/24 07:00 143/87 H 06/07/24 06:00 65 14 137/83 96 Room Air 06/07/24 05:00 66 14 150/92 H 98 Room Air 06/07/24 04:30 72 16 155/82 H 94 Room Air 06/07/24 04:30 Room Air 06/07/24 04:15 71 16 151/86 H 95 Room Air 06/07/24 04:00 73 14 132/92 94 Room Air 06/07/24 03:30 123/79 06/07/24 01:54 72 15 95 06/07/24 01:30 75 16 125/78 94 Room Air 06/07/24 01:00 78 15 121/71 94 Room Air
--- NOTE | 2024-06-07 12:51 | Discharge Summary ---
Date of Service June 07, 2024 Admission HPI Per Admitting Provider is a middle-age male who presents for left ICA stenosis noted on recent imaging. Patient states that he was having dizziness and flashes in his vision, as well as nausea and vomiting, and went to his local emergency department. His blood pressure was extremely elevated at the time. During that visit, he had a CTA of his neck and head, which demonstrated 80 to 90% of his left ICA. Patient denies any history of stroke in the past. He also denies any recent concerning symptoms, including amaurosis, unilateral extremity weakness numbness or tingling, difficulty speaking or swallowing, facial droop, sudden onset confusion. 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 He denies any complaints at this time including headache, fever, chest pain, shortness of breath, vomiting, nausea, vomiting, rest pain, claudication, nonhealing wounds or ulcers, other complaints. He states he was seen by a local vascular surgeon in his area, but was dissatisfied with his visit there and requested a second opinion here. Admission Exam Per Admitting Provider Constitutional: In general patient is a healthy-appearing well-nourished well- developed middle-aged male no distress. He is alert and oriented with any focal deficits. His carotids do not demonstrate a bruit. Heart is regular, his lungs are decreased but clear. His abdomen is soft and nontender with normoactive bowel sounds all 4 quadrants. Radial pulses +1 in the right, +2 on the left. Ulnar pulses +2 bilaterally. Femoral pulses are +2. Lower extremity distal pulses are +2. He has brisk capillary refill and no sign of distal ischemia. Principal Diagnosis Left internal carotid artery stenosis Discharge Exam Constitutional: In general patient is a healthy-appearing well-nourished well- developed middle-aged male no distress. He is alert and oriented with any focal deficits. His carotids do not demonstrate a bruit. Heart is regular, his lungs are decreased but clear. His abdomen is soft and nontender with normoactive bowel sounds all 4 quadrants. Radial pulses +1 in the right, +2 on the left. Ulnar pulses +2 bilaterally. Femoral pulses are +2. Lower extremity distal pulses are +2. He has brisk capillary refill and no sign of distal ischemia. Constitutional WD/WN, vitals as above Neck trachea midline Respiratory normal respiratory effort; no respiratory distress Cardiovascular Rate/Rhythm: regular rate and regular rhythm Skin + incision (small amount of edema and ecchymosis) Neurologic CN's II-XI intact bilaterally and moves all extremities Psychiatric A+Ox3, euthymic affect Discharge Data Allergies Allergy/AdvReac Type Severity Reaction Status Date / Time pumpkin Allergy Unknown Verified 06/06/24 10:12 Consultations 06/06/24 15:41 Consult [employer] Systems Specialist Routine Procedures Performed Operation Date: 06/06/24 12:30 Actual Procedures p Left Transcarotid Artery Revascularization(Left) - Domingo Pickett MD Ordered Studies 06/06/24 07:07 EV angio carotid cerv LT Routine US EV guide vascular access Routine Hospital Course (1) Stenosis of left internal carotid artery: Patient POD#1 from a left tcar. Doing well with no neuro deficits. D\C today. Total Time Total Time Spent Total Time Spent (In Minutes): 0 Discharge Plan Discharge Items Patient Disposition: Home - Self-Care Reason For Visit: Left Carotid Artery Stenosis Discharge Diagnosis: Left internal carotid artery stenosis Activity: Per Instructions section Non-emergency contact: Surgeon Call non-emergency contact if: your temperature is above 101.5, your wound has increased redness, your wound has increased drainage and your wound pain has increased Follow-up/Referrals: PCPKATHARINA [Primary Care Provider] - Diet: Heart Healthy Addtl Attending Provider Instructions: SPECIAL CARE INSTRUCTIONS: Medications: * Continue to take Aspirin,Brilinta and statin as directed. Incision Care: * You may shower, but do not rub incision. You may let the warm soapy water run over it. Be sure to dry the incision well after bathing. * Do not shave directly over the incision until it is healed. * DO NOT IMMERSE THE INCISION IN A TUB/POOL/etc. UNTIL HEALED. Restrictions: * Do not drive for at least one week or if you are still taking any narcotic pain medication. * Do not lift anything heavier than a gallon of milk for one week after going home. Possible Complications: * Numbness - It is normal to have some numbness around the incision. Numbness can extend beyond the incision to areas of the neck, ear and face. The numbness is due to bruising of nerves during the surgery and will gradually improve over a period of months. * Hoarseness/Difficulty Speaking and Swallowing - The bruising of nerves in the neck can also cause a hoarse voice, difficulty speaking or swallowing. This may improve over time, HOWEVER, if it continues for more than a few days please contact our office ([phone]). * Excessive Swelling - There will be some swelling immediately after surgery which usually resolves within one week. If you notice that the swelling is getting worse, notify your surgeon ([phone]). * Drainage/Bleeding - If there is any drainage or bleeding, it should be a very small amount (less than a teaspoon per day). If you have excessive bleeding or drainage from the incision, call your surgeon ([phone]) right away. ACTIVATION OF EMERGENCY MEDICAL SYSTEM: Call 911, immediately, if you experience any of the following: Warning Signs and Symptoms of Stroke: * Sudden numbness or weakness of the face, arm or leg, especially on one side of the body * Sudden confusion, trouble speaking or understanding * Sudden trouble seeing in one or both eyes * Sudden trouble walking, dizziness, loss of balance or coordination * Sudden severe headache with no cause Do not delay calling 911 if you experience any warning signs or symptoms of a stroke. Delay in seeking medical attention may affect what treatments can be given to you. Risk Factors for Stroke: You can reduce your chances of stroke by working with your medical provider to adopt a healthy lifestyle. Some specific ways to lower your chance of stroke are: * If you are a smoker, now is the time to stop smoking cigarettes * If you are diabetic, improve the control of your blood sugars * Avoid excessive amounts of alcohol * Control high blood pressure * Lose weight if you are overweight * Be sure to lead an active lifestyle * Eat a healthy diet low in salt, cholesterol and fat You should know about other risk factors for stroke that you are unable to control. These include: * Age 55 years or older * Male gender * Certain racial groups: , or / * Family History of Stroke, Mini stroke or Heart Attack * Sickle Cell Disease You will be receiving a call from the Vascular Surgery Nurse after you are discharged. FOLLOW UP VISIT: It is important for you to keep your follow up appointments with your medical provider. Keep any scheduled doctor appointments. Call [phone] to schedule a follow up appointment if one not already scheduled. Pending Studies at Discharge: No Stand-Alone Forms: My [facility], Smoking Cessation Medications and DC Order Prescriptions: New oxycodone-acetaminophen [Percocet] 5-325 mg tablet 1 tab PO Q8H PRN (Reason: pain) Qty: 14 0RF Continued losartan 50 mg tablet 50 mg PO QAM trazodone 100 mg tablet 200 mg PO HS PRN (Reason: Sleep) baclofen 10 mg tablet 10 mg PO BID PRN (Reason: muscle spasms) carvedilol 3.125 mg tablet 3.125 mg PO BID Patient Comments: pt unsure if he took last night or this am. Rx Instructions: must administer with a meal/food sertraline 100 mg tablet 100 mg PO QAM buspirone 10 mg tablet 10 mg PO BID lacosamide 100 mg tablet 100 mg PO BID atorvastatin 80 mg tablet 80 mg PO QPM desmopressin 0.1 mg tablet 0.1 mg PO QPM aspirin 81 mg tablet,delayed release (DR/EC) 81 mg PO DAILY ticagrelor 90 mg Tablet 90 mg PO BID Discharge Orders: Discharge Order (Routine); Ordered 06/07/24 Ordered By: Domingo Pickett Admission Data Admit Date/Time: 06/06/24 12:02 Attending Provider: Domingo Pickett Admit Provider: Domingo Pickett Primary Care Provider: PCP,NO Other Providers: Randell Yanes; Andrew Arguelles; Delta Shah; Moisés Humphries; Rolly Blankenship; Desmond Laureano; Tato Camacho; Trinity Canas; Sandhya Cordova; Sai Thomas; Rafael Dai; Jeanette Rincon
[2024-06-07 14:30] VITALS: BP 119/89; PULSE 63
--- NOTE | 2024-06-07 22:17 | Electrocardiogram Report ---
Test Reason : Blood Pressure : */* mmHG Vent. Rate : 61 BPM Atrial Rate : 61 BPM P-R Int : 152 ms QRS Dur : 96 ms QT Int : 402 ms P-R-T Axes : 43 61 44 degrees QTcB Int : 404 ms Normal sinus rhythm Normal ECG No previous ECGs available Confirmed by Rosalio Shaw ([id number]) on 06/07/2024 10:16:26 PM Referred By: Domingo Pickett Confirmed By: Rosalio Shaw
== END 2024-06-07 16:14 | disposition home or self-care (01) | DRG 36 ==
LOC: ASU 09:26 → 1E 12:02
PROC: EV.TCAR (2024-06-06 12:30)